=== PATIENT | female | born 1955 | race Caucasian/White ===

== ENCOUNTER 2017-01-28 04:25 | Inpatient (IN) ==
--- NOTE | 2017-01-25 11:08 | EKG Report ---
Test Performed on : 01/25/2017 10:43:44 AM Test Reason : pat Blood Pressure : / mmHG Vent. Rate : 050 BPM Atrial Rate : 050 BPM P-R Int : 168 ms QRS Dur : 098 ms QT Int : 422 ms P-R-T Axes : 022 041 020 degrees QTc Int : 384 ms Sinus bradycardia. Otherwise normal ECG No previous ECGs available Confirmed by Juventino Carrillo MD ([id number]) on 01/26/2017 3:24:10 PM
[2017-01-25 11:26] LABS: HEMATOCRIT 40.4 % (37.0-47.0); HEMOGLOBIN 13.2 g/dL (12.0-16.0); MCH 28.8 PG (27-31); MCHC 32.7 g/dL (33-37); MCV 88.2 FL (81-99); MPV 10.7 FL (7.4-10.4); RBC 4.58 XMIL (4.2-5.4)
[2017-01-25 12:15] LABS: CALCIUM 9.6 mg/dL (8.8-10.2); POTASSIUM 4.3 mmol/L (3.5-5.1)
[2017-01-28] MEDS ORDERED: LR 1,000 ML ONE (08:22)
[2017-01-28] MEDS ORDERED: PEPCID ONE (08:22)
[2017-01-28] MEDS ORDERED: REGLAN ONE (08:22)
[2017-01-28] MEDS ORDERED: TRANSDERM-SCOP ONE (08:23)
[2017-01-28] MEDS ORDERED: KEFZOL 2 GM/D5W 2 GM/50 ML IVPB ONE (08:23)
[2017-01-28] MEDS ORDERED: DIPRIVAN 1% ONE (10:15)
[2017-01-28] MEDS ORDERED: XYLOCAINE-MPF 2% ONE (10:16)
[2017-01-28] MEDS ORDERED: FENTANYL ONE (11:03)
[2017-01-28] MEDS ORDERED: VERSED ONE (11:04)
[2017-01-28] MEDS ORDERED: EPHEDRINE ONE (12:08)
[2017-01-28] MEDS ORDERED: ATROPINE ONE (12:10)
[2017-01-28] MEDS ORDERED: DECADRON ONE (12:14)
[2017-01-28] MEDS ORDERED: OFIRMEV 1000 MG/ISOTONIC SOLN 1,000 MG/100 ML BOTTLE ONE (12:20)
[2017-01-28] MEDS: DEMEROL ONE ×6 (13:15→14:09)
[2017-01-28] MEDS ORDERED: NS 1,000 ML ONE (13:45)
[2017-01-28] MEDS: NS 1,000 ML IV SCH (14:50)
[2017-01-28] MEDS ORDERED: ZOFRAN IV PRN (15:28)
[2017-01-28] MEDS ORDERED: HALDOL IV PRN (15:28)
[2017-01-28] MEDS ORDERED: MILK OF MAGNESIA PO PRN (15:28)
[2017-01-28] MEDS ORDERED: MORPHINE IV PRN (15:28)
[2017-01-28] MEDS ORDERED: ULTRAM PO PRN (15:31)
[2017-01-28] MEDS ORDERED: CARAFATE PO PRN (15:31)
[2017-01-28] MEDS: OXY IR PO PRN ×2 (15:39→20:13)
--- NOTE | 2017-01-28 16:11 | OPERATIVE NOTE ---
PROCEDURE DATE: 01/28/2017 PREOPERATIVE DIAGNOSIS: Right basilar femoral neck stress fracture. POSTOPERATIVE DIAGNOSIS: Right basilar femoral neck stress fracture. PROCEDURE PERFORMED: Right trochanteric fixation nail placement, size 10 mm short, with an 85 mm helical blade and 42 mm distal locking screw. SURGEON: Nghia Theodore MD RETAIL BUYER: Carlos Cortez RN ANESTHESIA: General. COMPLICATIONS: None. BLOOD LOSS: Minimal. DESCRIPTION OF PROCEDURE: The patient was brought to the operative suite and placed in supine position. After successful administration of general anesthesia, the patient was placed on the OSI table in the usual position for the right hip. The right hip was then prepped and draped in the usual sterile fashion. A longitudinal incision was made proximal to the tip of the greater trochanter. It was dissected sharply through the skin and then a guide pin was placed in the center of the femoral canal on AP and lateral images. It was reamed with a solid cannulated reamer and then serially reamed with flexible reamers to a size 11.5. A 10 short nail was then driven into place in the proper position and then, through a stab incision laterally, a guide pin was placed in the center of the femoral head on AP and lateral images. The proper length helical blade was measured at 85 mm. The track of the helical blade was drilled and then the helical blade was driven into place and locked proximally for rotation but not completely locked so that it could be a sliding screw. Once this was completed, the distal locking screw was placed using the distal guide. It was drilled and a proper length, screw was measured and driven into place at 42 mm. The guide was then removed. X-ray showed that the hardware was in excellent position. The wounds were copiously irrigated. The skin edge was approximated with 2-0 Vicryl. The Skin was closed with skin tessy and a sterile dressing was applied. The patient tolerated the procedure well without complication. At the end of the procedure, all counts were correct x2. The patient was transported to the recovery room in stable condition. cc: Nghia Theodore MD
[2017-01-28] MEDS: TYLENOL PO SCH (20:14)
[2017-01-28] MEDS: COLACE PO SCH (20:14)
[2017-01-28] MEDS: KEFZOL 1 GM/D5W 1 GM/50 ML IVPB IV SCH (20:14)
[2017-01-29] MEDS: TYLENOL PO SCH ×3 (03:59→19:52)
[2017-01-29] MEDS: KEFZOL 1 GM/D5W 1 GM/50 ML IVPB IV SCH (03:59)
[2017-01-29] MEDS: NS 1,000 ML IV SCH (03:59)
[2017-01-29 05:40] LABS: HEMATOCRIT 33.4 % (37.0-47.0); HEMOGLOBIN 10.8 g/dL (12.0-16.0)
[2017-01-29 05:57] LABS: AGAP 10; BUN 13 mg/dL (8-22); CALCIUM 8.2 mg/dL (8.8-10.2); CHLORIDE 102 mmol/L (98-107); COSMO 281; POTASSIUM 3.9 mmol/L (3.5-5.1); SODIUM 140 mmol/L (136-145); TCO2 28 mmol/L (25-35)
[2017-01-29] MEDS: XARELTO PO SCH (06:28)
[2017-01-29] MEDS: PRILOSEC PO SCH (06:28)
--- NOTE | 2017-01-29 08:29 | PROGRESS NOTE ---
DATE: 01/29/2017 SUBJECTIVE: Ms. Kc is a 61-year-old female who is postoperative day 1 from a right trochanteric fixation nail placement. She has no new complaints. OBJECTIVE: General: She is a well developed, well-nourished female. She is alert, oriented, and cooperative with the examination. She is in no acute distress. Vital Signs: Her vital signs are stable. She is afebrile. Her hemoglobin is 10.8 and her hematocrit is 33.4. Extremities: Her wound is clean, dry, intact. No signs of infection. Her calf is soft. Her right leg is neurovascularly intact. ASSESSMENT: Stable postoperative day 1 from a right trochanteric fixation nail placement. PLAN: We will have her begin working with physical therapy today. We will continue to monitor her and we will continue to manage her pain. She will likely go to rehab later this week. Dictated by CURTIS Glass for Nghia Theodore MD cc: CURTIS Glass MD
[2017-01-29] MEDS: PERIDEX MT SCH ×2 (08:47→19:52)
[2017-01-29] MEDS: MAG-OX PO SCH (08:53)
[2017-01-29] MEDS: FERROUS SULFATE PO SCH (08:53)
[2017-01-29] MEDS: CENTRUM SILVER PO SCH (08:53)
[2017-01-29] MEDS: VITAMIN D PO SCH (08:53)
[2017-01-29] MEDS: TOPROL XL PO SCH (08:53)
[2017-01-29] MEDS: PRINIVIL PO SCH (08:53)
[2017-01-29] MEDS: PATIENT'S OWN MED PO SCH (08:54)
[2017-01-29] MEDS: OXY IR PO PRN ×2 (11:36→18:16)
[2017-01-29] MEDS: COLACE PO SCH (19:52)
[2017-01-30] MEDS: PERIDEX MT SCH ×3 (01:08→21:35)
[2017-01-30] MEDS: COLACE PO SCH ×2 (01:08→21:34)
[2017-01-30] MEDS: TYLENOL PO SCH ×3 (03:57→21:35)
[2017-01-30] MEDS: OXY IR PO PRN ×4 (03:57→21:34)
[2017-01-30 05:24] LABS: HEMATOCRIT 33.9 % (37.0-47.0); HEMOGLOBIN 10.8 g/dL (12.0-16.0)
[2017-01-30] MEDS: XARELTO PO SCH (07:10)
[2017-01-30] MEDS: PRILOSEC PO SCH (07:10)
[2017-01-30] MEDS: VITAMIN D PO SCH (08:53)
[2017-01-30] MEDS: MAG-OX PO SCH (08:53)
[2017-01-30] MEDS: PRINIVIL PO SCH (08:53)
[2017-01-30] MEDS: PATIENT'S OWN MED PO SCH (08:54)
[2017-01-30] MEDS: TOPROL XL PO SCH (08:54)
[2017-01-30] MEDS: CENTRUM SILVER PO SCH (08:54)
[2017-01-30] MEDS: FERROUS SULFATE PO SCH (08:54)
--- NOTE | 2017-01-30 10:13 | PROGRESS NOTE ---
DATE: 01/30/2017 SUBJECTIVE: Enma Kc is a 61-year-old female who is postoperative day 2 from a right TFN for a femoral neck stress fracture. She has no complaints. OBJECTIVE: General: She is a well-developed, well-nourished female. She is alert, oriented, and cooperative with the exam. Extremities: Exam of her leg reveals the incision is healing nicely. There is no sign of infection. Her leg is neurovascularly intact. Vital signs: Stable. She is afebrile. She has walked 60 feet. She has a hematocrit of 33.9%. ASSESSMENT: Stable right trochanteric fixation nail. PLAN: We will plan on her going to rehab tomorrow. She will continue working with physical therapy today. cc: Nghia Theodore MD
[2017-01-31] MEDS: TYLENOL PO SCH (04:30)
[2017-01-31] MEDS: OXY IR PO PRN ×2 (04:47→09:33)
[2017-01-31 06:07] LABS: HEMATOCRIT 33.6 % (37.0-47.0); HEMOGLOBIN 10.7 g/dL (12.0-16.0)
[2017-01-31] MEDS: XARELTO PO SCH (06:25)
[2017-01-31] MEDS: PRILOSEC PO SCH (06:25)
[2017-01-31] MEDS: FERROUS SULFATE PO SCH (08:41)
[2017-01-31] MEDS: TOPROL XL PO SCH (08:41)
[2017-01-31] MEDS: MAG-OX PO SCH (08:41)
[2017-01-31] MEDS: PRINIVIL PO SCH (08:41)
[2017-01-31] MEDS: PERIDEX MT SCH (08:41)
[2017-01-31] MEDS: CENTRUM SILVER PO SCH (08:41)
[2017-01-31] MEDS: VITAMIN D PO SCH (08:41)
--- NOTE | 2017-01-31 10:38 | DISCHARGE SUMMARY ---
ADMISSION DATE: 01/28/2017 DISCHARGE DATE: 01/31/2017 DISCHARGE DIAGNOSIS: Right femoral neck stress fracture, status post right trochanter fixation nail placement. DISCHARGE MEDICATIONS: See discharge medication list. DISPOSITION: The patient was discharged home with home health. DISCHARGE INSTRUCTIONS: Instructed to return to see Dr. Theodore next . HOSPITAL COURSE: On the day of admission, the patient underwent a right trochanteric fixation nail placement. Her postoperative course was unremarkable. At discharge, she is afebrile. Tolerating a regular diet and ambulating well with physical therapy. Yesterday, she walked 60 feet. At discharge, her hemoglobin is 10.7 and her hematocrit is 33.6. Her wound is clean, dry, intact without signs of infection. Her calf is soft. Her right leg is neurovascularly intact. She is discharged home with home health in stable condition with instructions to follow up as described above. Dictated by CURTIS Glass for Nghia Theodore MD cc: CURTIS Glass MD
[2017-01-31 11:45] VITALS: BP 130/60
== END 2017-01-31 12:56 | disposition home health service (06) ==
LOC: SURHOLD 04:25 → EDSTATUS 11:15 → 4N 14:44
PROVIDERS: ADMIT Orthopaedic Surgery; ATTEND Orthopaedic Surgery